=== PATIENT | female | born 1955 | race Caucasian/White ===

== ENCOUNTER 2021-09-22 04:32 | Day surgery (SDC) | payer OTHER ==
[2021-09-20 11:08] VITALS: BMI 32.9
[2021-09-22 08:30] VITALS: TEMP 97.9
[2021-09-22 11:05] VITALS: BP 158/81; PULSE 55
== END 2021-09-22 11:13 | disposition home or self-care (01) ==
LOC: JASU-ENDO 04:32
PROVIDERS: ATTEND Internal Medicine Gastroenterology
PROC: 0DJD8ZZ Inspection of Lower Intestinal Tract, Via Natural or Artificial Opening Endoscopic (ICD-10-PCS; principal; 2021-09-22 09:00)
DX: Z12.11 Encounter for screening for malignant neoplasm of colon (principal); K57.30 Diverticulosis of large intestine without perforation or abscess without bleeding; Z86.010 Personal history of colon polyps